=== PATIENT | male | born 1960 | race Caucasian/White ===

== ENCOUNTER 2024-02-07 11:29 | Emergency (ER) | payer MEDICARE, MEDICAID, SELFPAY ==
[2024-02-07 11:39] VITALS: BP 147/61
[2024-02-07 12:09] VITALS: BP 146/78
[2024-02-07 13:00] VITALS: BP 183/95
--- NOTE | 2024-02-07 13:18 | ED.GENMED ---
History of Present Illness
General
Chief Complaint: Abdominal Symptoms
Source: patient
Time Seen by Provider: 02/07/24 13:10
History of Present Illness
History of Present Illness:
63-year-old male presents to the emergency room complaining of left testicular pain. Pain has been present for over a year. CT worse today. No fever no chills. No difficulty urinating. Patient Nuys any nausea, vomiting or abdominal pain.
Patient states he does have umbilical hernia which he feels like has gotten bigger but is not painful.
Past History
Past History
ED Past Medical History: Psychiatric and Other (Tonsillectomy)
Social History
Tobacco: Non-smoker
Alcohol: None
Drug: None
Personal: Single
Living: long term
Employment: Not employed
Family History
Family History: Other (Noncontributory)
Phy Exam
Physical Exam
Physical Exam:
General: Awake, Alert, Oriented X3. No acute distress.
Vitals: unremarkable
Head: Atraumatic
Eyes: Pupils equal, EOMI
Throat: Airway intact, no exudates
Neck: Trachea midline
Lungs: Clear and equal b/l
Heart: Regular rate, no murmurs
Abd: Soft, Nontender, No pulsatile mass
Genitalia: Normal uncircumcised genitalia. No significant tenderness palpation of the testicles. No masses palpated
Neuro: Nonfocal
Skin: Warm, dry, no rash
Extremities: pulses equal b/l, no edema
Course
Orders/Labs/Results
Orders:
Orders
02/07/24 13:18
Scrotum US [US Scrotum] Urgent
Comment:
Reason For Exam: left testicular pain
02/07/24 15:34
Urinalysis Reflex To Culture Urgent
Date Specimen was Collected: 02/07/24
Time Specimen was Collected: 13:20
Vital Signs
Initial and Last Documented VS:
Initial Vital Signs
Temp Pulse Resp BP Pulse Ox
97.9 F 58 18 147/61 94
02/07/24 11:39 02/07/24 11:39 02/07/24 11:39 02/07/24 11:39 02/07/24 11:39
Last Documented Vital Signs
Temp Pulse Resp BP Pulse Ox
97.9 F 58 18 176/77 93
02/07/24 11:39 02/07/24 11:39 02/07/24 11:39 02/07/24 14:00 02/07/24 14:30
MDM/Problems Addressed
Differential Diagnosis Includes:
Testicular mass, orchitis, epididymitis
MDM/Problems Addressed:
Ultrasound shows mild, chronic cystoceles. No acute abnormalities. Patient stable for discharge back to his facility. Urine negative.
*Radiology
Radiology exam reviewed: radiology read reviewed
*Critical Care Note
Total Time (30-74mins, 75-104mins- exclusive of procedures): Not Applicable
ED Attending Note
-
Portions of this chart may have been created with voice recognition software.� Occasional wrong word or��sound alike� substitutions may have occurred due to the inherent limitations of voice recognition software.
Discharge Plan
Departure
Patient Disposition: Home (Routine Discharge)
Date of Disposition: 02/07/24
Time of Disposition: 17:27
Patient with high blood pressure during this ER visit?: Yes
Condition: Good
Discharge Problem:
Left testicular pain
Instructions: Hydrocele/Varicocele (DC), BLOOD PRESSURE
Prescriptions:
No Action
benztropine 0.5 MG tablet
0.5 mg PO HS
simvastatin 40 MG tablet
40 mg PO HS
paroxetine HCl 20 MG tablet
30 mg PO DAILY
hydrochlorothiazide 25 MG tablet
25 mg PO DAILY
acetaminophen [Tylenol] 325 MG capsule
650 mg PO Q6HPRN PRN (Reason: mild pain)
clonazepam [Klonopin] 0.5 mg Tablet
0.5 mg PO DAILY@1200,1630
clonazepam [Klonopin] 1 mg Tablet
1 mg PO HS
olanzapine 10 mg Tablet
30 mg PO HS
risperidone [Risperdal] 3 mg Tablet
3 mg PO HS
divalproex 500 mg Tablet Extended Release 24 Hr
1,500 mg PO HS
cholecalciferol (vitamin D3) [Vitamin D3] 25 mcg (1,000 unit) Capsule
1,000 unit PO HS
amlodipine-benazepril [Lotrel] 10-40 mg Capsule
1 cap PO HS
sennosides [Senna Laxative] 8.6 mg Tablet
17.2 mg PO BIDPRN PRN (Reason: constipation)
alum-mag hydroxide-simeth 200-200-20 mg/5 mL Suspension
30 ml PO Q6HPRN PRN (Reason: indigestion)
ibuprofen 600 MG tablet
600 mg PO Q6HPRN PRN (Reason: moderate pain)
atenolol 50 mg Tablet
50 mg PO QPM Qty: 10 0RF
tamsulosin 0.4 mg Capsule
0.4 mg PO DAILY Qty: 30 0RF
melatonin 3 mg Tablet
3 mg PO HSPRN PRN (Reason: sleep)
Referrals:
Danielle Buitrago CRNP [Family Provider] -
Interventions
Interventions:
*Nursing Disposition Last Done: 02/07/24 17:39
CM-[id number]-Iypygdembh Assessment Last Done: 02/07/24 12:14
Discharge Date and Time
Discharge Date/Time: 02/07/24 17:40
Print Language: GUINEAN
[2024-02-07 14:00] VITALS: BP 176/77
[2024-02-07 15:40] LABS: Urine Albumin Negative (Neg - Trace); Urine Bilirubin Negative (Negative); Urine Character Clear (Clear); Urine Color Yellow; Urine Glucose Negative (Negative); Urine Ketone Negative (Negative); Urine Leukocyte Negative (Negative); Urine Nitrite Negative (Negative); Urine Occult Blood Negative (Negative); Urine Urobilinogen Negative (Neg - 1+)
== END 2024-02-07 17:40 | disposition home or self-care (01) ==
LOC: EMR 11:29
PROVIDERS: EMERGENCY PHYSICIAN Emergency Medicine; FAMILY PHYSICIAN Nurse Practitioner Family
DX: N50.812 Left testicular pain (principal)
CPT/HCPCS: 99284; 76870; 81003; 93976